=== PATIENT | female | born 1995 | race Two or more races ===

== ENCOUNTER 2016-04-15 17:42 | Emergency (ER) | payer MEDICAID ==
[~2016-04-15] VITALS: Ht 157.5 cm; Wt 50.8 kg
[2016-04-15 17:56] VITALS: BP 115/70
[2016-04-15 18:39] LABS: Urine Bilirubin Negative (Negative); Urine Blood TRACE /uL (Negative); Urine Color Yellow (Yellow); Urine Glucose Normal (Normal); Urine Ketone Negative (Negative); Urine Nitrite Negative (Negative); Urine RBC <1 /hpf (0 - 4); Urine Squamous Epithelial Cell FEW /hpf (<5); Urine Urobilinogen Normal (Negative); Urine pH 7.5 (5.0-8.0)
[2016-04-15 19:19] LABS: Albumin 4.2 g/dL (3.4-5.0); Bilirubin, Total 0.9 mg/dL (0.2-1.0); Calcium 8.8 mg/dL (8.5-10.1); Potassium 3.4 mmol/L (3.5-5.1); Total Protein 8.1 g/dL (6.4-8.2)
[2016-04-15 19:25] LABS: Basophils # (auto) 0.1 uL; Basophils % (auto) 0.6 % (0.0-2.0); DEFINITIVE VIEW TRANSMISSION; Eosinophils # (auto) 0.1 uL; Eosinophils % (auto) 0.4 % (0.0-7.0); Hematocrit 37.4 % (36.0-46.0); Hemoglobin 11.6 g/dL (12.2-16.2); Lymphocytes # (auto) 1.7 uL; Lymphocytes % (auto) 13.6 % (10.0-50.0); Mean Corpuscular Hemoglobin 23.8 pg (28.0-32.0); Mean Corpuscular Volume 76.6 fL (80.0-100.0); Mean Platelet Volume 7.5 fL (7.4-10.4); Monocytes # (auto) 0.5 uL; Neutrophils # (auto) 9.9 uL; Neutrophils % (auto) 81.4 % (37.0-80.0); Platelet Count (auto) 474 10^3/uL (140-450); Red Cell Distribution Width 19.6 % (11.6-16.0); White Blood Cell 12.2 10^3/uL (4.4-10.8)
[2016-04-15 20:04] LABS: Anisocytosis Slight; Hypochromia Moderate; Platelet Estimate Increased
== END 2016-04-16 00:33 | disposition left against medical advice (07) ==
LOC: ER 17:44
DX: R55 Syncope and collapse (principal); Z53.21 Procedure and treatment not carried out due to patient leaving prior to being seen by health care provider
CPT/HCPCS: 36415; 80053; 81001; 82962; 85025; 93005